=== PATIENT | female | born 1985 | race American Indian/Alaskan Native ===

== ENCOUNTER 2018-01-11 15:15 | Emergency (ER) | payer MEDICAID, OTHER ==
[2018-01-11 15:16] VITALS: BMI 25.4
[2018-01-11 15:29] VITALS: TEMP 98.5
[2018-01-11] MEDS ORDERED: Sodium Chloride 0.9% 1,000 ML IV STA (16:19)
[2018-01-11] MEDS ORDERED: Lidocaine 85 MG in Sodium Chloride 0.9% 100 ML IV STA (16:19)
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
[2018-01-11 16:37] LABS: BASO # 0.1 K/uL (0.0-0.2); BASO % 0.9 % (0.0-2.0); EOS # 0.4 K/uL (0.0-0.7); EOS % 4.1 % (0.0-4.0); HEMOGLOBIN 12.8 g/dL (11.0-16.0); LYMPH # 2.3 K/uL (1.0-4.3); LYMPH % 21.4 % (20.0-40.0); MEAN CORPUSCULAR HEMOGLOBIN 29.6 pg (27.0-31.0); MEAN CORPUSCULAR HGB CONC 33.3 g/dL (33.0-37.0); MEAN PLATELET VOLUME 8.2 fL (7.2-11.7); MONO # 0.5 K/uL (0.0-0.8); MONO % 4.9 % (0.0-10.0); NEUT # 7.4 K/uL (1.8-7.0); NEUT % 68.7 % (50.0-75.0); RBC 4.32 Mil/uL (3.80-5.20); RED CELL DISTRIBUTION WIDTH 13.1 % (11.5-14.5); WHITE BLOOD COUNT 10.7 K/uL (4.8-10.8)
[2018-01-11 16:43] LABS: SQUAMOUS EPITHIAL 8 /hpf (0-5); URINE BACTERIA MOD (<OCC); URINE BILIRUBIN NEGATIVE (NEGATIVE); URINE BLOOD 3+ (NEGATIVE); URINE CLARITY Hazy (Clear); URINE COLOR Yellow (YELLOW); URINE GLUCOSE (UA) NORMAL (Normal); URINE LEUKOCYTE ESTERASE 3+ Leu/uL (Negative); URINE PROTEIN 1+ mg/dL (NEGATIVE); URINE UROBILINOGEN NORMAL mg/dL (0.2-1.0)
[2018-01-11 16:53] LABS: BLOOD UREA NITROGEN 16 mg/dL (7-17); CALCIUM 9.5 mg/dl (8.6-10.4); GFR AFRICAN-AMERICAN > 60; GFR NON-AFRICAN AMERICAN > 60
[2018-01-11] MEDS ORDERED: Sodium Chloride 0.9% 1,000 ML ONE (17:22)
[2018-01-11 17:31] VITALS: RESP 16
[2018-01-11 17:47] VITALS: BP 121/81; PULSE 72
--- NOTE | 2018-01-11 17:56 | CT ---
PROCEDURE: CT abdomen and pelvis with Oral contrast. HISTORY: Left flank pain COMPARISON: None. TECHNIQUE: Contiguous axial images of the abdomen and pelvis performed without oral or intravenous contrast material. Additional 2D sagittal and coronal reformats generated. This CT exam was performed using one or more of the following dose reduction techniques: Automated exposure control, adjustment of the mA and/or kV according to patient size, and/or use of iterative reconstruction technique. Radiation dose: Total exam DLP = 367.19 mGy-cm. FINDINGS: LOWER THORAX: Lung bases clear. No infiltrate effusion or basilar pneumothorax. Heart size normal. No significant pericardial effusion. Tiny hiatal hernia. LIVER: Liver exhibits normal size. No obvious hepatic mass collection or calcification. GALLBLADDER AND BILE DUCTS: Unremarkable. PANCREAS: Unremarkable. No mass. No ductal dilatation. SPLEEN: Unremarkable. No splenomegaly. ADRENALS: Unremarkable. KIDNEYS AND URETERS: Right is not visible and there are no metallic clips or suture material seen in the right renal fossa which is occupied by large bowel. Findings likely represent congenital absence. The right kidney measures approximately 12.2 cm in CC dimension. There are punctate calcifications seen within the peripheral margins of the left renal collecting system however no definitive evidence of narciso hydronephrosis. BLADDER: Urinary bladder incompletely distended which presumably accounts slight thick-walled appearance. Possibility of a cystitis not excluded. Clinical correlation recommended. REPRODUCTIVE: Uterus unremarkable. There is a moderate amount of free fluid fluid in the cul de sac more so on the left than right. APPENDIX: The appendix not seen with complete certainty however what could represent the appendix is best seen on axial series 3, image number [id number]. . No obvious inflammatory changes seen in the adjacent mesenteric. BOWEL: Evaluation of the bowel is limited due to the lack of oral contrast. Stomach is distended with food debris liquid and air. Visualized loops of small bowel exhibit normal contour and caliber. No evidence of acute mechanical small bowel obstruction. There is a moderate amount of stool seen within the large bowel particularly the cecum and ascending colon suggesting mild fecal retention/constipation. PERITONEUM: Moderate amount of free fluid seen within the cul-de-sac/pelvis. . Fluid could be ovarian in origin however clinical correlation recommended. Small fat containing umbilical hernia. LYMPH NODES: Unremarkable. No enlarged lymph nodes. VASCULATURE: Unremarkable. No aortic aneurysm. BONES: No fracture or destructive lesion. OTHER FINDINGS: None. IMPRESSION: There are punctate calcifications seen about the peripheral margins of the left renal collecting system however no narciso hydronephrosis. Moderate amount of fluid present within the cul de sac nonspecific. Fluid could be ovarian in origin however clinical correlation recommended.
[2018-01-11] MEDS ORDERED: cefTRIAXone IV 1 gm in Dextros 50 ML IV STA (17:57)
[2018-01-11 18:01] VITALS: O2SAT 99
[2018-01-11] MEDS ORDERED: cefTRIAXone IV 1 gm in Dextros 50 ML IVPB ONE (18:10)
== END 2018-01-11 18:55 | disposition home or self-care (01) ==
LOC: C.ER 15:15
DX: N12 Tubulo-interstitial nephritis, not specified as acute or chronic (principal)
CPT/HCPCS: 74176; 80048; 81001; 85025; 87086; 87181; 96361; 96374; 96375; 99284; J0696; J1885; J2001; J7030

== ENCOUNTER 2018-01-17 16:50 | Emergency (ER) | payer OTHER ==
[2018-01-17 17:22] VITALS: BMI 25.0
[2018-01-17 17:25] VITALS: O2SAT 100
[2018-01-17] MEDS ORDERED: Sodium Chloride 0.9% 1,000 ML IV ONE (18:22)
[2018-01-17 18:28] LABS: SQUAMOUS EPITHIAL 1 /hpf (0-5); URINE BILIRUBIN NEGATIVE (NEGATIVE); URINE CLARITY Clear (Clear); URINE COLOR Yellow (YELLOW); URINE GLUCOSE (UA) NORMAL (Normal); URINE LEUKOCYTE ESTERASE NEG Leu/uL (Negative); URINE PROTEIN NEGATIVE (NEGATIVE); URINE UROBILINOGEN NORMAL mg/dL (0.2-1.0)
[2018-01-17 18:29] LABS: URINE BLOOD TRACE (NEGATIVE)
[2018-01-17 18:30] LABS: HCG,QUALITATIVE URINE NEGATIVE (NEGATIVE)
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
[2018-01-17 19:30] LABS: BASO # 0.1 K/uL (0.0-0.2); BASO % 0.5 % (0.0-2.0); EOS # 0.1 K/uL (0.0-0.7); EOS % 1.1 % (0.0-4.0); HEMOGLOBIN 12.7 g/dL (11.0-16.0); LYMPH # 1.4 K/uL (1.0-4.3); LYMPH % 13.1 % (20.0-40.0); MEAN CELL VOLUME 89.2 fL (81.0-99.0); MEAN CORPUSCULAR HEMOGLOBIN 29.7 pg (27.0-31.0); MEAN CORPUSCULAR HGB CONC 33.3 g/dL (33.0-37.0); MEAN PLATELET VOLUME 7.9 fL (7.2-11.7); MONO # 0.3 K/uL (0.0-0.8); NEUT % 82.3 % (50.0-75.0); RBC 4.29 Mil/uL (3.80-5.20); RED CELL DISTRIBUTION WIDTH 13.3 % (11.5-14.5)
[2018-01-17 19:43] LABS: ALB/GLOB RATIO 1.2 (1.0-2.1); ALBUMIN 4.2 g/dL (3.5-5.0); ALT/SGPT 24 U/L (9-52); AST/SGOT 32 U/L (14-36); BLOOD UREA NITROGEN 12 mg/dL (7-17); CALCIUM 8.9 mg/dl (8.6-10.4); GFR AFRICAN-AMERICAN > 60; GFR NON-AFRICAN AMERICAN > 60
[2018-01-17 22:44] VITALS: BP 108/69; PULSE 106; RESP 20; TEMP 99.9
--- NOTE | 2018-01-18 10:44 | US ---
Pelvic ultrasound History: Pelvic pain. Comparison: None available. Technique: Real-time sonography was performed through the pelvis utilizing transabdominal and transvaginal techniques. Findings: Uterus: 7.8 x 4.3 x 6.4 centimeters. Heterogeneous echotexture. Retroverted. Endometrium measures 5 millimeters, within normal limits. Small amount of free fluid within the pelvic cul-de-sac. Right ovary: 4.9 x 2.0 x 2.5 centimeters. Normal flow. Multiple follicles. 2.1 x 1.3 x 1.7 centimeter cyst with smaller internal cysts/follicles. Left ovary: 3.9 x 1.9 x 2.3 centimeters. Normal flow. Multiple follicles. Hypoechoic paraovarian cyst measuring 2.2 x 1.8 x 2.0 centimeters. Impression: Bilateral ovarian/ paraovarian cysts. Small amount of free fluid within the pelvic cul-de-sac which may be the sequelae of physiologic change or sequelae of ovarian cyst leakage or rupture in the appropriate clinical setting. Free fluid within the pelvic cul-de-sac. Incidentally noted is free fluid by the spleen. These findings were preliminarily reported at 9:08 p.m. on 01/17/[address] Jeremie Crandall from [facility].
--- NOTE | 2018-01-18 10:52 | US ---
Renal ultrasound History: Left flank pain. Comparison: None available. Technique: Real-time sonography was performed through the kidneys. Findings: Right kidney: Not well visualized. Left Kidney: 11.9 x 4.7 x 4.5 centimeters. No gross hydronephrosis. Multiple scattered echogenic foci suggestive for nonobstructive calculi measuring up to 3 millimeters in the upper pole, 3 millimeters in the midpole, and 3 millimeters in the lower pole. Urinary bladder is underdistended. Visualized aorta is grossly preserved. Small amount of perisplenic fluid. Impression: Left renal nephrolithiasis. No gross hydronephrosis. Small amount of fluid surrounding the spleen. Right kidney is not well visualized. These findings were preliminarily reported at 9:12 p.m. on 01/17/[address] Solomon Crandall from [facility].
== END 2018-01-17 22:10 | disposition home or self-care (01) ==
LOC: C.ER 16:50
DX: N20.0 Calculus of kidney (principal)
CPT/HCPCS: 76770; 76830; 76856; 80053; 81001; 84703; 85025; 96374; 99285; J1885; J7030

== ENCOUNTER 2019-01-01 22:43 | Observation (INO) | payer OTHER ==
[2019-01-01 22:59] VITALS: BMI 24.6
[2019-01-01 23:25] LABS: HCG,QUALITATIVE URINE POSITIVE (NEGATIVE)
[2019-01-01 23:27] LABS: SQUAMOUS EPITHIAL 2 /hpf (0-5); URINE BILIRUBIN NEGATIVE (NEGATIVE); URINE BLOOD 2+ (NEGATIVE); URINE CLARITY Clear (Clear); URINE COLOR Yellow (YELLOW); URINE GLUCOSE (UA) NORMAL (Normal); URINE LEUKOCYTE ESTERASE NEG Leu/uL (Negative); URINE PROTEIN NEGATIVE (NEGATIVE); URINE UROBILINOGEN NORMAL mg/dL (0.2-1.0)
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
[2019-01-01 23:51] LABS: BASO # 0.1 K/uL (0.0-0.2); BASO % 1.3 % (0.0-2.0); EOS # 0.5 K/uL (0.0-0.7); EOS % 8.5 % (0.0-4.0); HEMOGLOBIN 11.7 g/dL (11.0-16.0); LYMPH # 2.1 K/uL (1.0-4.3); LYMPH % 33.1 % (20.0-40.0); MEAN CELL VOLUME 90.2 fL (81.0-99.0); MEAN CORPUSCULAR HEMOGLOBIN 31.3 pg (27.0-31.0); MEAN CORPUSCULAR HGB CONC 34.7 g/dL (33.0-37.0); MEAN PLATELET VOLUME 8.2 fL (7.2-11.7); MONO # 0.4 K/uL (0.0-0.8); MONO % 6.5 % (0.0-10.0); NEUT # 3.2 K/uL (1.8-7.0); NEUT % 50.6 % (50.0-75.0); NRBC % 0.1 % (0.0-2.0); RBC 3.73 Mil/uL (3.80-5.20); RED CELL DISTRIBUTION WIDTH 13.5 % (11.5-14.5); WHITE BLOOD COUNT 6.4 K/uL (4.8-10.8)
[2019-01-02 00:02] LABS: BLOOD UREA NITROGEN 13 mg/dL (7-17); CALCIUM 9.1 mg/dl (8.6-10.4); GFR NON-AFRICAN AMERICAN > 60
[2019-01-02 00:03] LABS: ALB/GLOB RATIO 1.2 (1.0-2.1); ALBUMIN 4.4 g/dL (3.5-5.0); ALT/SGPT 9 U/L (9-52); AST/SGOT 59 U/L (14-36)
[2019-01-02 01:28] LABS: ALB/GLOB RATIO 1.4 (1.0-2.1); ALT/SGPT 10 U/L (9-52); AST/SGOT 38 U/L (14-36); BLOOD UREA NITROGEN 12 mg/dL (7-17); CALCIUM 8.8 mg/dl (8.6-10.4); GFR NON-AFRICAN AMERICAN > 60
[2019-01-02] MEDS ORDERED: Sodium Chloride 0.9% 1,000 ML IV ONE ×2 (02:06→03:27)
[2019-01-02] MEDS ORDERED: Morphine 4 MG/ML VIAL ONE (02:11)
[2019-01-02] MEDS ORDERED: Sodium Chloride 0.9% 1,000 ML ONE (02:11)
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
[2019-01-02 04:38] LABS: BASO % 0.3 % (0.0-2.0); EOS # 0.2 K/uL (0.0-0.7); EOS % 2.3 % (0.0-4.0); LYMPH # 1.5 K/uL (1.0-4.3); LYMPH % 18.4 % (20.0-40.0); MEAN CELL VOLUME 92.2 fL (81.0-99.0); MEAN CORPUSCULAR HEMOGLOBIN 31.1 pg (27.0-31.0); MEAN CORPUSCULAR HGB CONC 33.7 g/dL (33.0-37.0); MEAN PLATELET VOLUME 7.5 fL (7.2-11.7); MONO # 0.4 K/uL (0.0-0.8); MONO % 4.4 % (0.0-10.0); NEUT # 6.1 K/uL (1.8-7.0); NEUT % 74.6 % (50.0-75.0); RBC 2.98 Mil/uL (3.80-5.20); RED CELL DISTRIBUTION WIDTH 13.2 % (11.5-14.5); WHITE BLOOD COUNT 8.2 K/uL (4.8-10.8)
[2019-01-02 04:50] LABS: HEMOGLOBIN 9.3 g/dL (11.0-16.0)
[2019-01-02] MEDS ORDERED: Methotrexate 50 mg/2 ml Inj IM ONE ×2 (04:57→06:30)
[2019-01-02] MEDS ORDERED: Dextrose 5%/0.9% NS 1,000 ML IV ONE ×2 (05:15→05:33)
--- NOTE | 2019-01-02 11:30 | US ---
Date of service: 01/02/2019 HISTORY: VB PAIN RO ECTOPIC COMPARISON: None available. TECHNIQUE: Transabdominal and transvaginal FINDINGS: UTERUS: Measures 6.1 x 5.1 x 4.9 cm. Normal in size and appearance. No fibroid or other mass lesion seen. ENDOMETRIUM: Measures 4 mm in diameter. Unremarkable. CERVIX: No cervical abnormality identified. RIGHT OVARY: Measures 3.3 x 1.9 x 2.6 cm. No solid mass. Normal flow. Right para ovarian mass, 3.7 x 4.4 x 3.8 cm. This mass shows increased vascularity, possibly an ectopic gestation, possibly tubal. LEFT OVARY: Measures 3.5 x 1.9 x 3.0 cm. No solid mass. Normal flow. Simple para ovarian cyst, 1.7 x 2.1 x 2.2 cm. FREE FLUID: Small amount of complex fluid noted in the cul-de-sac and right adnexa. Concerning for blood products. Possible ruptured ectopic should be considered. OTHER FINDINGS: None. IMPRESSION: Suspected right adnexal ectopic , 4.4 cm greatest dimension. Complex fluid in cul-de-sac and right adnexa raises concern for ruptured ectopic . No intrauterine gestation identified. Simple left para ovarian cyst, 2.2 cm. No additional abnormality. The preliminary findings for this examination were reported by [facility] Radiology at 2:30 a.m. on 01/02/2019. There is discordance of this report with the preliminary findings. Presence of complex fluid was not noted in the preliminary report of this examination. The implication is that of possible blood products. These findings were related to the patient's nurse, sachi, by telephone at 11:25 a.m. on 01/02/2019.
[2019-01-02] MEDS ORDERED: Propofol 10 mg/ml Inj (20 ML) ONE (11:44)
[2019-01-02] MEDS ORDERED: Midazolam 2 MG/2 ML VIAL ONE (11:45)
[2019-01-02] MEDS ORDERED: Bupivacaine 0.5%/Epi 1:200,000 (10 ML SOL) ONE (11:50)
[2019-01-02] MEDS ORDERED: Succinylcholine Chloride 20 mg/ml Syr (5 ml) IV ONE (12:18)
[2019-01-02] MEDS ORDERED: Rocuronium 10 mg/ml (5 ml) ONE (12:18)
[2019-01-02] MEDS ORDERED: Lidocaine Hydrochloride 5 ML INJ ONE (12:18)
[2019-01-02] MEDS ORDERED: Neostigmine 1:1000 (1 mg/ml) Inj ONE (13:25)
[2019-01-02] MEDS ORDERED: HYDROmorphone 0.5 mg/0.5 ml ISec IVP PRN (13:28)
--- NOTE | 2019-01-02 13:46 | PCM.OP ---
Operative Report - Operative Report Date of Surgery/Procedure: 01/02/19 Time of Surgery/Procedure: 11:50 Surgeon: Fadi Wade Meat Carrier: Christi Anesthesia/Sedation: General Pre-Operative Diagnosis: Suspected ruptured ectopic Post-Operative Diagnosis: Ruptured right ectopic with hemoperitoneum Indication for Surgery: Ruptured ectopic Operative Findings: 9 cm sounded uterus. 950cc hemoperitoneum, right fallopian tube ectopic , normal uterus, normal left fallopian tube, normal ovaries b/l Procedure/Operation Description: Laparoscopic right salpingectomy with removal of ectopic, and evacuation of hemoperitoneum Estimated Blood Loss: 50 Drains: 250 cc uo Complications: none Specimen: right complete fallopian tube with ectopic Discharge & Condition: Stable, D/C home pending CBC result
[2019-01-02 13:51] VITALS: O2SAT 100
[2019-01-02 17:18] LABS: HEMOGLOBIN 10.2 g/dL (11.0-16.0); MEAN CORPUSCULAR HEMOGLOBIN 31.1 pg (27.0-31.0); MEAN CORPUSCULAR HGB CONC 33.4 g/dL (33.0-37.0); MEAN PLATELET VOLUME 8.3 fL (7.2-11.7); RBC 3.29 Mil/uL (3.80-5.20); RED CELL DISTRIBUTION WIDTH 13.4 % (11.5-14.5); WHITE BLOOD COUNT 10.9 K/uL (4.8-10.8)
[2019-01-02 17:37] VITALS: BP 117/70; PULSE 81; RESP 20; TEMP 97.4
--- NOTE | 2019-01-03 00:50 | OP ---
PROCEDURE DATE: 01/02/2019 SURGEON: Fadi Wade MD ENTRY PROCESSOR: Car Barraza MD ANESTHESIA: General. PREOPERATIVE DIAGNOSIS: Suspected ruptured ectopic . POSTOPERATIVE DIAGNOSIS: Ruptured right ectopic with hemoperitoneum. OPERATIVE FINDINGS: A 9-cm sounded uterus, 900 mL of hemoperitoneum, right fallopian tube ectopic , normal uterus, normal left fallopian tube, normal ovaries bilaterally. PROCEDURE: Laparoscopic right salpingectomy with removal or ectopic and evacuation of hemoperitoneum. ESTIMATED BLOOD LOSS: 60 mL. DRAINS: 250 mL urine output. COMPLICATIONS: None. SPECIMEN: Right complete fallopian tube with ectopic. DESCRIPTION OF PROCEDURE: The patient was taken to the operating room where general anesthesia was found to be adequate. She was then prepped and draped in a dorsal lithotomy position by Felipe medrano in a sterile fashion. A weighted speculum and vaginal wall retractor were used with adequate visualization of the cervix. Anterior lip of the cervix was grasped with a single-tooth tenaculum. The uterus sounded to 9 cm and serially dilated. A HUMI uterine manipulator was placed. Attention was then turned to the abdomen where a Veress needle was placed transumbilically. Proper placement was confirmed with negative pressure and positive water drop test. The abdomen was then insufflated with CO2 gas to 15 mmHg pressure. Two 5 mm ports were placed at the level of the umbilicus approximately 14 cm equidistance, guided with laparoscope. Before those ports were placed, a 5 mm port was placed just below the umbilicus, guided with a laparoscope. upon inspection significant hemoperitoneum was noted which was then evacuated with using suction. Once the specimen was identified, there was a right ectopic on the fallopian tube, which was cauterized and transected out using the LigaSure. Once the tube with the ectopic was removed hemostasis was found to be adequate. The tube and the ectopic were then placed in an Endobag and removed. The abdomen and pelvis were then irrigated and suction irrigated all clots and debris. On final inspection, hemostasis found to be adequate. Ports were carefully removed. Abdomen was desufflated of CO2 gas. The port sites were closed using 3-0 Monocryl in a subcuticular fashion. Covered with Mastisol, Steri-Strips and island dressings. The HUMI manipulator was removed from the vagina. The patient tolerated the procedure well. Sponge, lap, and needle counts were correct x2. The patient was taken to the recovery room in stable condition. Fadi Wade M.D.
== END 2019-01-02 21:06 | disposition home or self-care (01) ==
LOC: C.ER 22:43 → C.9E 01-02 04:16 → C.6T 01-02 06:48
PROVIDERS: ADMIT Obstetrics & Gynecology; ATTEND Obstetrics & Gynecology
DX: O00.101 Right tubal pregnancy without intrauterine pregnancy (principal); O46.90 Antepartum hemorrhage, unspecified, unspecified trimester; K66.1 Hemoperitoneum; J45.909 Unspecified asthma, uncomplicated
CPT/HCPCS: 36415; 59151; 76830; 76856; 80053; 81001; 82948; 83735; 84100; 84702; 84703; 85025; 85027; 86850; 86900; 86920; 88302; 96360; 96372; 96374; G0378; J1100; J1885; J2250; J2270; J2405; J2704; J2710; J3010; J7030; J7042; J9250